=== PATIENT | female | born 2000 | race Caucasian/White ===

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

== ENCOUNTER 2022-05-03 22:47 | Emergency (ER) | payer OTHER ==
[~2022-05-03] VITALS: Ht 149.9 cm; Wt 54.4 kg
[2022-05-04] MEDS ORDERED: DOLOGESIC-DF 51 EACH PO (03:15)
== END 2022-05-04 03:39 ==
LOC: ER 22:47 → EMR PED 22:52 → ER 22:52
DX: R42 Dizziness and giddiness (principal); Z20.822 Contact with and (suspected) exposure to COVID-19

== ENCOUNTER 2023-12-04 10:25 | Outpatient (CLI) | payer OTHER ==
[~2023-12-04 10:25] MED LIST: DOLOGESIC-DF 51 EACH PO
== END 2023-12-04 11:00 | disposition home or self-care (01) ==
LOC: TOM 10:25
PROVIDERS: ATTEND Radiology Diagnostic Radiology
DX: R51.9 Headache, unspecified (principal)